=== PATIENT | male | born 1970 ===

== ENCOUNTER 2018-03-26 15:23 | Emergency (ER) | payer OTHER ==
[2018-03-26 15:24] VITALS: BMI 33.0
[2018-03-26 15:44] VITALS: RESP 16; TEMP 97.6; O2SAT 98
--- NOTE | 2018-03-26 16:41 | ED PDOC ---
Upper Extremity Pain/Injury Time Seen by Provider: 03/26/18 15:57 Chief Complaint (Nursing): Upper Extremity Problem/Injury Chief Complaint (Provider): Right Shoulder Injury History Per: Patient Onset/Duration Of Symptoms: Days (x1 month) Current Symptoms Are (Timing): Still Present Additional Complaint(s): 47 y/o right hand dominant male presents for evaluation of right shoulder injury. 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 He states that on 02/28/18 he fell on a tile floor and hurt his right shoulder. He initially decline being evaluated at that time but has had worsening pain since , prompting ED visit. He reports taking Motrin 600mg daily for the last week. He reports last dose was at 13:30 today with no relief. He states pain worsens with movement. He denies any history of shoulder injury. He also denies LOC or head injury with the fall. No other complaints at this time. PMD: Dr. Merritt Past Medical History Reviewed: Historical Data, Nursing Documentation, Vital Signs Vital Signs: Last Vital Signs Temp 97.6 F 03/26/18 15:40 Pulse 88 03/26/18 15:40 Resp 16 03/26/18 15:40 BP 157/84 H 03/26/18 15:40 Pulse Ox 98 03/26/18 15:40 - Medical History PMH: GERD, Sleep Apnea Denies: Chronic Kidney Disease - Surgical History Surgical History: Endoscopy Other surgeries: right ACL repair - Family History Family History: States: Unknown Family Hx - Social History Current smoker - smoking cessation education provided: Yes SMOKER/PACKS PER DAY:: 1 Alcohol: Social Drugs: Denies - Home Medications Home Medications: Ambulatory Orders Medication Instructions Recorded Ibuprofen [Motrin Tab] 800 mg PO Q6 09/10/16 L.acidoph,Paracasei, B.lactis 1 each PO DAILY 03/28/17 [Probiotic] Multivitamin [Multivitamins] 1 cap PO DAILY 03/28/17 [place]-3 Fatty Acids [Fish Oil 1 cap PO DAILY 03/28/17 Concentrate] Terbinafine HCl [Lamisil] 250 mg PO DAILY 03/28/17 Naproxen 1 tab PO Q12 PRN #14 tab 08/08/17 traMADol [Ultram] 50 mg PO Q8 PRN #10 tab 08/08/17 Acetaminophen [Acetaminophen 8 650 mg PO Q8 PRN #24 tablet.er 03/26/18 Hour] Meloxicam [Mobic] 15 mg PO DAILY #10 tab 03/26/18 - Allergies Allergies/Adverse Reactions: Allergies Allergy/AdvReac Type Severity Reaction Status Date / Time No Known Allergies Allergy Verified 03/26/18 15:40 Review of Systems ROS Statement: Except As Marked, All Systems Reviewed And Found Negative Musculoskeletal: Positive for: Shoulder Pain (right) Physical Exam - Reviewed Nursing Documentation Reviewed: Yes Vital Signs Reviewed: Yes - Physical Exam Comments: GENERAL APPEARANCE: Patient is awake, alert, oriented x 3, resting comfortably, in no acute distress. SKIN: Warm, dry; (-) cyanosis. NECK: Supple, FROM ENT: Mucus membranes moist. CHEST AND RESPIRATORY: (-) rales, (-) rhonchi, (-) wheezes; breath sounds equal bilaterally. Speaking in full sentences, respirations even and nonlabored. HEART AND CARDIOVASCULAR: (-) irregularity; (-) murmur, (-) gallop. RIGHT SHOULDER: (+) diffuse tenderness to right shoulder and proximal humerus, (-) ecchymosis, (-) effusion, (-) overlying skin changes. (+) full ROM, but pain on abduction and extension. NV intact, injection wax molder strength equal, capillary refill intact. Remainder of upper extremity: nontender with FROM. NEURO AND PSYCH: Mental status as above. Gait steady, speech clear. Normal cognition, appropriate affect. (-) facial asymmetry. - ECG O2 Sat by Pulse Oximetry: 98 (RA) Pulse Ox Interpretation: Normal Medical Decision Making Medical Decision Makin:04 Impression: Acute shoulder pain s/p fall Plan: --X-ray right shoulder --Tylenol 650mg PO --Reevaluation 1714 XR reviewed, radiology report follows PROCEDURE: Radiographs of the Right Shoulder HISTORY: joint pain s/p fall COMPARISON: No prior. FINDINGS: BONES: Normal. No fracture. JOINTS: Normal. Glenohumeral and acromioclavicular joints preserved. No osteoarthritis. Evidence of calcific tendinosis. SOFT TISSUES: Normal. OTHER FINDINGS: None. IMPRESSION: No acute findings related to/accounting for the clinical presentation. 1744 On re-evaluation, patient reports improvement of symptoms. On exam, patient remains AAOx3, in no acute distress. On exam, neck is supple, lungs CTA, cardiac RRR, neuro exam shows no focal findings. Repeat BP: 139/77 Repeat HR: 71 VSS, stable for discharge. Diagnostic results d/w the patient in great detail. Dx of acute shoulder pain s/ p fall d/w the patient. Based on history, exam and diagnostic results plan will be for discharge and outpatient follow up. Advised to follow up with primary care physician/ortho in 1-2 days without fail. Advised to take medication as prescribed. Return to the emergency room at any time for any new or worsening symptoms. Patient states he fully agrees with and understands discharge instructions. States that he agrees with the plan and disposition. Verbalized and repeated discharge instructions and plan. I have given the patient opportunity to ask any additional questions. Scribe Attestation: Documented by Mark Sexton, acting as a scribe for Ana Fererira PA-C. Provider Scribe Attestation: All medical record entries made by the scribe were at my direction and personally dictated by me. I have reviewed the chart and agree that the record accurately reflects my personal performance of the history, physical exam, medical decision making, and the department course for this patient. I have also personally directed, reviewed, and agree with the discharge instructions and disposition. Disposition - Clinical Impression Clinical Impression: Shoulder injury, Shoulder pain, Fall - Patient ED Disposition Is Patient to be Admitted: No Counseled Patient/Family Regarding: Studies Performed, Diagnosis, Need For Followup, Rx Given - Disposition Referrals: Fan Schmidt MD [Staff Provider] - Disposition: Routine/Home Disposition Time: 17:49 Condition: STABLE Additional Instructions: FOLLOW UP WITH PMD/ORTHO IN 1-2 DAYS WITHOUT FAIL. RETURN TO ED WITH ANY NEW OR WORSENING SYMPTOMS. Prescriptions: Acetaminophen [Acetaminophen 8 Hour] 650 mg PO Q8 PRN #24 tablet.er PRN Reason: Pain, Moderate (4-7) Meloxicam [Mobic] 15 mg PO DAILY #10 tab Instructions: Shoulder Pain (DC) Forms: [employer] ([place]), [facility] ED School/Work Excuse Print Language: MONGOLIAN - POA Present On Arrival: Falls Or Trauma
--- NOTE | 2018-03-26 17:29 | RAD ---
PROCEDURE: Radiographs of the Right Shoulder HISTORY: joint pain s/p fall COMPARISON: No prior. FINDINGS: BONES: Normal. No fracture. JOINTS: Normal. Glenohumeral and acromioclavicular joints preserved. No osteoarthritis. Evidence of calcific tendinosis. SOFT TISSUES: Normal. OTHER FINDINGS: None. IMPRESSION: No acute findings related to/accounting for the clinical presentation.
[2018-03-26 18:19] VITALS: BP 139/71; PULSE 71
== END 2018-03-26 18:10 | disposition home or self-care (01) ==
LOC: H.ER 15:23
DX: S49.91XA Unspecified injury of right shoulder and upper arm, initial encounter (principal); W19.XXXA Unspecified fall, initial encounter; Y99.0 Civilian activity done for income or pay

== ENCOUNTER 2018-06-25 20:08 | Emergency (ER) | payer OTHER ==
[2018-06-25 20:16] VITALS: BP 151/71; PULSE 92; RESP 16; TEMP 98.2; O2SAT 98
[2018-06-25 20:17] VITALS: BMI 31.5
[2018-06-25] MEDS ORDERED: Oxycodone/Acetaminophen 5/325 mg Tab PO STA (20:30)
[2018-06-25] MEDS ORDERED: Oxycodone/Acetaminophen 5/325 mg Tab ONE (20:38)
--- NOTE | 2018-06-25 20:40 | ED PDOC ---
Upper Extremity Pain/Injury Time Seen by Provider: 06/25/18 20:19 Chief Complaint (Nursing): Upper Extremity Problem/Injury Chief Complaint (Provider): Left shoulder pain History Per: Patient History/Exam Limitations: no limitations Onset/Duration Of Symptoms: Hrs Current Symptoms Are (Timing): Still Present Quality: "Pain" Exacerbating Factor(s): Strenuous Use Of Affected Area Additional History Per: Patient Additional Complaint(s): 48yo male, comes to ER stating he developed left shoulder pain earlier today while at work. 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 He denies any weakness, numbness or tingling to his left arm. He denies any chest pain and offers no additional medical complaints. Past Medical History Reviewed: Historical Data, Nursing Documentation, Vital Signs Vital Signs: Last Vital Signs Temp 98.2 F 06/25/18 20:16 Pulse 92 H 06/25/18 20:16 Resp 16 06/25/18 20:16 BP 151/71 H 06/25/18 20:16 Pulse Ox 98 06/25/18 20:16 - Medical History PMH: GERD, Sleep Apnea Denies: Chronic Kidney Disease - Surgical History Surgical History: Endoscopy - Family History Family History: States: Unknown Family Hx - Immunization History Hx Tetanus Toxoid Vaccination: No Hx Influenza Vaccination: Yes Hx Pneumococcal Vaccination: No - Home Medications Home Medications: Ambulatory Orders Medication Instructions Recorded Ibuprofen [Motrin Tab] 800 mg PO Q6 09/10/16 L.acidoph,Paracasei, B.lactis 1 each PO DAILY 03/28/17 [Probiotic] Multivitamin [Multivitamins] 1 cap PO DAILY 03/28/17 [place]-3 Fatty Acids [Fish Oil 1 cap PO DAILY 03/28/17 Concentrate] Terbinafine HCl [Lamisil] 250 mg PO DAILY 03/28/17 Naproxen 1 tab PO Q12 PRN #14 tab 08/08/17 traMADol [Ultram] 50 mg PO Q8 PRN #10 tab 08/08/17 Acetaminophen [Acetaminophen 8 650 mg PO Q8 PRN #24 tablet.er 03/26/18 Hour] Meloxicam [Mobic] 15 mg PO DAILY #10 tab 03/26/18 oxyCODONE/Acetaminophen [Percocet 1 ea PO Q6H PRN #10 tab 06/25/18 5/325 mg Tab] - Allergies Allergies/Adverse Reactions: Allergies Allergy/AdvReac Type Severity Reaction Status Date / Time No Known Allergies Allergy Verified 03/26/18 15:40 Review of Systems ROS Statement: Except As Marked, All Systems Reviewed And Found Negative Musculoskeletal: Positive for: Shoulder Pain (left shoulder pain) Neurological: Negative for: Weakness, Numbness Physical Exam - Reviewed Nursing Documentation Reviewed: Yes Vital Signs Reviewed: Yes - Physical Exam Appears: Positive for: Non-toxic, No Acute Distress Head Exam: Positive for: ATRAUMATIC, NORMAL INSPECTION, NORMOCEPHALIC Skin: Positive for: Normal Color Eye Exam: Positive for: Normal appearance Neck: Positive for: Supple Cardiovascular/Chest: Positive for: Regular Rate, Rhythm, Chest Non Tender Respiratory: Positive for: Normal Breath Sounds Extremity: Positive for: Normal ROM (Full ROM of left shoulder but with pain.), Tenderness (tenderness to left anterior shoulder), Capillary Refill (< 2 seconds ). Negative for: Deformity, Swelling Neurologic/Psych: Positive for: Alert, Oriented. Negative for: Motor/Sensory Deficits - ECG O2 Sat by Pulse Oximetry: 98 (RA) Pulse Ox Interpretation: Normal Medical Decision Making Medical Decision Making: Impression: Left shoulder injury Plan: * XR Left shoulder * Percocet 1tab PO No acute fracture or dislocation Scribe Attestation: Documented by Naya Arthur acting as a scribe for PNIEDA Miles. Provider Attestation: All medical record entries made by the Scribe were at my direction and personally dictated by me. I have reviewed the chart and agree that the record accurately reflects my personal performance of the history, physical exam, medical decision making, and the department course for this patient. I have also personally directed, reviewed, and agree with the discharge instructions and disposition. Disposition - Clinical Impression Clinical Impression: Shoulder injury - Patient ED Disposition Is Patient to be Admitted: No Counseled Patient/Family Regarding: Diagnosis, Need For Followup, Rx Given - Disposition Referrals: Ivy Hamilton MD [Staff Provider] - Disposition: Routine/Home Disposition Time: 21:49 Condition: GOOD Prescriptions: oxyCODONE/Acetaminophen [Percocet 5/325 mg Tab] 1 ea PO Q6H PRN #10 tab PRN Reason: Pain, Severe (8-10) Instructions: Rotator Cuff Injury Forms: [facility] ([place]), [facility] ED School/Work Excuse
--- NOTE | 2018-06-26 09:49 | RAD ---
Date of service: 06/25/2018 PROCEDURE: Radiographs of the Left Shoulder HISTORY: Pain COMPARISON: No prior. FINDINGS: BONES: Bone alignment and mineralization are normal. There is no acute displaced fracture or bone destruction. JOINTS: Normal. Glenohumeral and acromioclavicular joints preserved. No osteoarthritis. SOFT TISSUES: Normal. OTHER FINDINGS: None. IMPRESSION: No acute fracture or dislocation.
== END 2018-06-25 22:07 | disposition home or self-care (01) ==
LOC: H.ER 20:08
DX: S49.92XA Unspecified injury of left shoulder and upper arm, initial encounter (principal); X50.3XXA Overexertion from repetitive movements, initial encounter; Y93.E5 Activity, floor mopping and cleaning